=== PATIENT | male | born 1980 | race Caucasian/White ===

== ENCOUNTER 2017-01-12 12:49 | Emergency (ER) | payer MEDICAID ==
[2017-01-12] MEDS ORDERED: TETANUS/DIPHTHERIA/PERTUSSIS 0.5 ML SYRINGE IM ONE ×2 (13:15→13:16)
[2017-01-12] MEDS ORDERED: LIDOCAINE 2% 10 ML MDV ONE (13:52)
== END 2017-01-12 15:32 | disposition home or self-care (01) ==
DX: S81.012A Laceration without foreign body, left knee, initial encounter (principal); W29.8XXA Contact with other powered hand tools and household machinery, initial encounter; Y92.89 Other specified places as the place of occurrence of the external cause; Y99.0 Civilian activity done for income or pay; F17.200 Nicotine dependence, unspecified, uncomplicated; Z23 Encounter for immunization

== ENCOUNTER 2017-01-14 10:05 | Emergency (ER) | payer MEDICAID ==
[2017-01-14 10:13] VITALS: BP 148/66
[2017-01-14] MEDS ORDERED: SULFAMETH/TRIMETH DS 800/160 MG TABLET PO STA (12:41)
--- NOTE | 2017-01-14 12:44 | ED Physician Documentation ---
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 Put on Keflex, however didn't fill it until yesterday. Since yesterday has had increasing redness and pain at the wound without fevers or chills.) Review of Systems Constitutional: denies: Fever, Chills, Myalgias, Fatigue Respiratory: denies: Dyspnea, Cough GI: denies: Abdominal Pain, Nausea PD PAST MEDICAL HISTORY - Past Medical History Past Medical History: No - Past Surgical History Past Surgical History: Yes Derm: Skin grafts - Present Medications Home Medications: Ambulatory Orders Medication Instructions Recorded Confirmed Cephalexin [Keflex] 500 mg PO Q6H #28 capsule 01/12/17 01/14/17 HYDROcod/ACETAM 5/325 [[place] 5/325] 1 - 2 ea PO Q6H PRN #10 tablet 01/14/17 Sulfamethoxazole/Trimethoprim 1 each PO BID 7 Days 01/14/17 [Sulfamethoxazole-Tmp Ds Tablet] - Allergies Allergies/Adverse Reactions: Allergies Allergy/AdvReac Type Severity Reaction Status Date / Time No Known Drug Allergies Allergy Verified 01/12/17 12:57 - Social History Does the pt smoke?: Yes Smoking Status: Current every day smoker Does the pt drink ETOH?: Yes Does the pt have substance abuse?: No - Immunizations Immunizations are current?: Yes PD ED PE NORMAL - Vitals Vital signs reviewed: Yes - General General: Alert and oriented X 3, No acute distress - Extremities Extremities: Other (There is a curvilinear 3 cm laceration that is sutured to the medial superior right knee with good range of motion and no overt rest pain. It has mild surrounding cellulitis extending about 2-3 cm outside the wound margins, no purulent drainage and nothing to culture.) - Neuro Neuro: Alert and oriented X 3, Normal speech - Psych Psych: Normal mood, Normal affect Results - Vitals Vitals: Vital Signs - 24 hr 01/14/17 10:10 Temperature 36.7 C Heart Rate 102 H Respiratory 16 Rate Blood Pressure 148/66 H O2 Saturation 98 Oxygen O2 Source Room air PD MEDICAL DECISION MAKING - ED course ED course: Seems reasonable to add Bactrim for staphylococcal coverage at this juncture, doesn't seem like he needs the sutures out but close watchful waiting was advised. Departure - Departure Disposition: 01 Home, Self Care Clinical Impression: Wound infection Condition: Good Record reviewed to determine appropriate education?: Yes Instructions: ED Wound Care Prescriptions: HYDROcod/ACETAM 5/325 [[place] 5/325] 1 - 2 ea PO Q6H PRN #10 tablet PRN Reason: Pain Sulfamethoxazole/Trimethoprim [Sulfamethoxazole-Tmp Ds Tablet] 1 each PO BID 7 Days Comments: Return immediately if you develop fever, chills, or the redness worsens. Your blood pressure was elevated today on check in to the emergency department. This does not mean that you have hypertension, it is a common phenomenon to check into the emergency department and have elevated blood pressure. I recommend that you see your primary care physician within the week to have it rechecked when you're feeling better. Do not drink or drive while on narcotic pain medicine. Note that many narcotic pain relievers also contain tylenol/acetaminophen. Please ensure that your total dose of acetaminophen from all sources does not exceed 3 grams (3000mg) per day. You may constipated on this medication, take a stool softener such as "Colace" twice a day while you are on it. Also recommend a xisl-emz-ilorkmi laxative such as senna or MiraLAX any day that you do not have a bowel movement. If you received narcotic pain medication in the emergency department, do not drive or operate machinery for the next 24 hours. Discharge Date/Time: 01/14/17 12:51
[2017-01-14] MEDS ORDERED: SULFAMETH/TRIMETH DS 800/160 MG TABLET PO ONE (12:47)
== END 2017-01-14 12:51 | disposition home or self-care (01) ==
LOC: ED 10:05
DX: T81.4XXA Infection following a procedure, initial encounter (principal); L03.116 Cellulitis of left lower limb; Y84.8 Other medical procedures as the cause of abnormal reaction of the patient, or of later complication, without mention of misadventure at the time of the procedure; R03.0 Elevated blood-pressure reading, without diagnosis of hypertension; F17.200 Nicotine dependence, unspecified, uncomplicated
CPT/HCPCS: 99283; A9270

== ENCOUNTER 2017-01-20 08:55 | Emergency (ER) | payer MEDICAID ==
--- NOTE | 2017-01-20 09:04 | ED Physician Documentation ---
PD HPI WOUND RECHECK - Stated complaint Stated Complaint: NUMBNESS AROUND STITCHES - Chief complaint Chief Complaint: Wound - Histroy obtained from History obtained from: Patient - History of Present Illness Location: Left Lower Extremity Timing - onset: How many days ago (8 days ago had injury from power tool, seen in ED and had wound irrigation and sutures. It got red and swollen over next couple of days, and back for wound check. He had been Rx Keflex and this was changed to Bactrim at that time. He says the redness and swelling improved quite a bit, but still has just some element of redness and drainage and feeling of numbness in skin just below the wound. It has not gotten completely better.) Associated symptoms: Redness, Swelling, Drainage (cloudy/clear intermittent, fay/yellow at this time.). No: Fever Recently seen: Emergency Dept (see above) Review of Systems Constitutional: denies: Fever, Chills GI: denies: Nausea, Vomiting, Diarrhea Skin: reports: Laceration (s) PD PAST MEDICAL HISTORY - Past Surgical History Past Surgical History: Yes Derm: Skin grafts - Present Medications Home Medications: Ambulatory Orders Medication Instructions Recorded Confirmed HYDROcod/ACETAM 5/325 [[place] 5/325] 1 - 2 ea PO Q6H PRN #10 tablet 01/14/17 Sulfamethoxazole/Trimethoprim 1 each PO BID 7 Days 01/14/17 01/20/17 [Sulfamethoxazole-Tmp Ds Tablet] Hydrocodone/Acetaminophen [[place] 1 each PO Q6H PRN #12 tablet 01/20/17 5-325 Tablet] Mupirocin 1 applic TP TID #15 oint...g. 01/20/17 Sulfamethox/Trimeth 800/160 1 each PO BID #10 tablet 01/20/17 [Bactrim Ds 800/160] - Allergies Allergies/Adverse Reactions: Allergies Allergy/AdvReac Type Severity Reaction Status Date / Time No Known Drug Allergies Allergy Verified 01/12/17 12:57 - Social History Does the pt smoke?: Yes Smoking Status: Current every day smoker Does the pt drink ETOH?: Yes Does the pt have substance abuse?: No - Immunizations Immunizations are current?: Yes PD ED PE NORMAL - Vitals Vital signs reviewed: Yes - General General: Alert and oriented X 3, No acute distress, Well developed/nourished, Other (normal gait without limping. ) - Derm Derm: Warm and dry - Extremities Extremities: Other (lateral knee area with sutured laceration with mild redness around the edges, mostly inferior. There is scant slightly cloudy fay/yellow drop of discharge if the wound is pressured at the edges. Sutures are mostly intact (1 of them had pulled through an edge) without any dehiscence. ) Results - Vitals Vitals: Vital Signs - 24 hr 01/20/17 01/20/17 08:55 09:33 Temperature 36.5 C 36.5 C Heart Rate 93 88 Respiratory 16 17 Rate Blood Pressure 150/87 H 150/87 H O2 Saturation 99 100 Oxygen O2 Source Room air PD MEDICAL DECISION MAKING - ED course Complexity details: considered differential (still seems like a bit of infection , though much better than at 2nd visit. Since still some discharge/drainage, I obtained culture. Can have him resume the prior Keflex that he has, and continue the Bactrim for 5 more days. Culture can guid treatment in 2-3 days. He says the wound had drained pus and some apparent pieces of debris when it first drained, so there is enough opening for drainage to occur. I don't think it need further opening as yet. ), d/w patient Departure - Departure Disposition: 01 Home, Self Care Clinical Impression: Encounter for re-check of laceration wound Condition: Stable Record reviewed to determine appropriate education?: Yes Prescriptions: Sulfamethox/Trimeth 800/160 [Bactrim Ds 800/160] 1 each PO BID #10 tablet Mupirocin 1 applic TP TID #15 oint...g. Hydrocodone/Acetaminophen [[place] 5-325 Tablet] 1 each PO Q6H PRN #12 tablet PRN Reason: Pain Comments: Continue to clean the wound and apply ointment to it, but change to mupirocin 2- 3 times daily. Continue the SMZ/TMP antibiotic (the big white one) and resume the first antibiotic you were prescribed (so both of them) for the next 4-5 days. Recheck if still not improved over the next 2-3 days, and we will see if the culture obtained grows out a different than usual germ. I would leave the sutures in another week or so. If the wound still has some signs of infection and the antibiotics seem right by the culture, it might end up needing to just be opened and then allowed to heal slowly that way, which would give a bigger scarring (less desirable on a bending joint). Discharge Date/Time: 01/20/17 09:38
[2017-01-20 09:07] VITALS: BP 150/87
[2017-01-20] MEDS ORDERED: MUPIROCIN 2% OINT 1 GM TOP STA (09:23)
--- NOTE | 2017-01-20 10:49 | ED Physician Documentation ---
ED Addendum - Addendum Addendum: 01/20/17 10:48 unscheduled return visit for wond care - chart accessed for follow up and educational purposes
== END 2017-01-20 09:38 | disposition home or self-care (01) ==
LOC: ED 08:55
DX: Z51.89 Encounter for other specified aftercare (principal); S81.812D Laceration without foreign body, left lower leg, subsequent encounter; X58.XXXD Exposure to other specified factors, subsequent encounter; F17.200 Nicotine dependence, unspecified, uncomplicated
CPT/HCPCS: 87070; 87205; 99283

== ENCOUNTER 2017-05-19 12:35 | Emergency (ER) | payer MEDICAID ==
[2017-05-19 12:44] VITALS: BP 147/88
[2017-05-19] MEDS ORDERED: IBUPROFEN 800 MG TABLET PO STA (13:07)
[2017-05-19] MEDS ORDERED: IBUPROFEN 800 MG TABLET PO ONE (13:16)
--- NOTE | 2017-05-19 13:57 | XRAY Preliminary Report ---
Exam: XR Knee 3 View RT IMPRESSION: 1. No fractures. Moderate joint effusion. No loose bodies. No arthritic changes. [facility] SITE ID: [id number]
--- NOTE | 2017-05-19 14:19 | XRAY Report ---
EXAM: RIGHT KNEE RADIOGRAPHY EXAM DATE: 05/19/2017 01:46 PM. CLINICAL HISTORY: Right knee pain. COMPARISON: None. TECHNIQUE: 3 views. FINDINGS: Bones: Normal. No fractures or bone lesions. Joints: Moderate size joint effusion. No loose bodies by plain x-ray. Soft Tissues: Normal. No soft tissue swelling. IMPRESSION: 1. No fractures. Moderate joint effusion. No loose bodies. No arthritic changes. [facility] Referring Provider Line: [phone] SITE ID: [id number]
--- NOTE | 2017-05-19 14:26 | ED Physician Documentation ---
PD HPI LOWER EXT INJURY - Stated complaint Stated Complaint: RT KNEE PX - Chief complaint Chief Complaint: Ext Problem - History obtained from History obtained from: Patient - History of Present Illness PD HPI LOW EXT INJURY LOCATION: Right, Knee Type of injury: Twist Where injury occurred: Home Timing - onset: Yesterday Timing - details: Still present Worsened by: Other (walking) Associated symptoms: No: Swelling Similar symptoms before: No diagnosis - Additional information Additional information: The patient is a 36-year-old male who presents with pain in his right knee. He states he "dislocated it" yesterday while prying with a prybar, and twisting his knee. He reports that it occasionally dislocates and he has learned to manipulate it back into place. He presents now because of continued pain that is worse when ambulating, and is concerned about the possibility of bony abnormality. Review of Systems Constitutional: denies: Fever Nose: denies: Congestion Respiratory: denies: Cough Musculoskeletal: reports: Joint pain (right knee). denies: Back pain Neurologic: denies: Focal weakness, Numbness PD PAST MEDICAL HISTORY - Past Medical History Past Medical History: No - Past Surgical History Past Surgical History: Yes Derm: Skin grafts - Present Medications Home Medications: Ambulatory Orders Medication Instructions Recorded Confirmed HYDROcod/ACETAM 5/325 [[place] 5/325] 1 - 2 ea PO Q6H PRN #15 tablet 05/19/17 - Allergies Allergies/Adverse Reactions: Allergies Allergy/AdvReac Type Severity Reaction Status Date / Time No Known Drug Allergies Allergy Verified 05/19/17 13:08 - Social History Does the pt smoke?: Yes Smoking Status: Current every day smoker Does the pt drink ETOH?: Yes Does the pt have substance abuse?: No - Immunizations Immunizations are current?: Yes PD ED PE NORMAL - Vitals Vital signs reviewed: Yes (Mild hypertension initially.) - General General: Alert and oriented X 3, Well developed/nourished - HEENT HEENT: Atraumatic - Respiratory Respiratory: No respiratory distress - Back Back: No spinal TTP - Derm Derm: No rash - Extremities Extremities: No deformity, No edema, No calf tenderness / cord, Other (There is tenderness to palpation over the lateral joint line of the right knee and in the popliteal fossa. There is no prepatellar apprehension, no appreciable joint effusion, and no ligamentous instability detected. He can fully extend the knee and can flex it to 90, although flexion exacerbates his discomfort. There is no calf tenderness. Distal neurovascular is intact.) - Neuro Neuro: Alert and oriented X 3, No motor deficit, No sensory deficit Results - Vitals Vitals: Oxygen O2 Source Room air - Rads (name of study) right knee Radiology: Prelim report reviewed, EMP read contemporaneously, See rad report ( No fractures. Moderate joint effusion. No loose bodies. No arthritic changes. ) PD MEDICAL DECISION MAKING - ED course Complexity details: reviewed results, re-evaluated patient, considered differential, d/w patient ED course: The patient's presentation is most consistent with internal derangement of the right knee. There is no evidence of bony abnormality on x-ray examination. Treatment in the emergency department included administration of ibuprofen 800 mg orally, and application of a knee immobilizer. I discussed with him the results of the imaging study, symptomatic treatment and outpatient follow-up, as well as potentially worrisome signs or symptoms that should prompt reevaluation in the emergency department. Departure - Departure Disposition: 01 Home, Self Care Clinical Impression: Knee internal derangement Qualifiers: Laterality: right Qualified Code(s): M23.91 - Unspecified internal derangement of right knee Condition: Stable Instructions: ED Meniscal Injury Knee Poss, ED Effusion Knee Follow-Up: [facility] [Provider Group] Prescriptions: HYDROcod/ACETAM 5/325 [[place] 5/325] 1 - 2 ea PO Q6H PRN #15 tablet PRN Reason: Pain Comments: Apply ice pack to your knee intermittently for the next 3 days. Use the knee immobilizer for comfort. You can use ibuprofen, up to 800 mg 3 times daily for its anti-inflammatory effect. You can use Vicodin as prescribed if needed for pain. Follow-up with your primary physician or with orthopedics within 2 weeks. Call to schedule an appointment. Return to the emergency department if you develop increasing pain, increasing swelling of your knee, or otherwise worsening symptoms. Discharge Date/Time: 05/19/17 15:03
== END 2017-05-19 15:03 | disposition home or self-care (01) ==
LOC: ED 12:35
DX: M23.91 Unspecified internal derangement of right knee (principal); X50.0XXA Overexertion from strenuous movement or load, initial encounter; Y93.01 Activity, walking, marching and hiking; Y92.019 Unspecified place in single-family (private) house as the place of occurrence of the external cause; F17.200 Nicotine dependence, unspecified, uncomplicated
CPT/HCPCS: 73562; 99283; A9270

== ENCOUNTER 2018-02-19 11:21 | Emergency (ER) | payer MEDICAID ==
--- NOTE | 2018-02-19 12:23 | ED Physician Documentation ---
PD HPI TRUNK INJURY - Stated complaint Stated Complaint: R SIDE RIB PX - Chief complaint Chief Complaint: General - History obtained from History obtained from: Patient - History of Present Illness Location: Right chest Type of injury: Fall (from ladder that slid) Timing - onset: How many days ago (4) Timing - duration: Days (4) Timing - details: Abrupt onset, Still present Quality: Pain, Sharp. No: Spasm Improved by: Rest Worsened by: Moving, Palpating Associated symtptoms: No: Weakness, Numbness Where injury occured: Home Recently seen: Not recently seen Review of Systems Constitutional: denies: Fever, Chills Nose: denies: Rhinorrhea / runny nose, Congestion Throat: denies: Sore throat Cardiac: denies: Palpitations Respiratory: denies: Dyspnea, Cough GI: denies: Abdominal Pain, Nausea, Vomiting Skin: denies: Rash, Abrasion (s), Laceration (s) Neurologic: denies: Focal weakness, Numbness PD PAST MEDICAL HISTORY - Past Medical History Past Medical History: No - Past Surgical History Past Surgical History: Yes Derm: Skin grafts - Present Medications Home Medications: Ambulatory Orders Medication Instructions Recorded Confirmed HYDROcod/ACETAM 5/325 [[place] 5/325] 1 - 2 ea PO Q6H PRN #15 tablet 05/19/17 HYDROcod/ACETAM 5/325 [[place] 5/325] 1 tab PO Q6H PRN #15 tablet 02/19/18 Naproxen 375 mg PO BID #20 tablet 02/19/18 - Allergies Allergies/Adverse Reactions: Allergies Allergy/AdvReac Type Severity Reaction Status Date / Time No Known Drug Allergies Allergy Verified 05/19/17 13:08 - Social History Does the pt smoke?: Yes Smoking Status: Current every day smoker Does the pt drink ETOH?: Yes Does the pt have substance abuse?: No - Immunizations Immunizations are current?: Yes PD ED PE NORMAL - Vitals Vital signs reviewed: Yes - General General: Alert and oriented X 3, No acute distress, Well developed/nourished - Neck Neck: No bony TTP - Cardiac Cardiac: RRR, No murmur - Respiratory Respiratory: Clear bilaterally, Other (some tenderness right anterolateral ribs without crepitance at level of ribs 8-10. No bruising. Abd not tender. ) - Abdomen Abdomen: Soft, Non tender - Back Back: No CVA TTP - Derm Derm: Normal color, Warm and dry Results - Vitals Vitals: Oxygen O2 Source Room air - Rads (name of study) chest with ribs right Radiology: Prelim report reviewed (no fractures nor lung injury) PD MEDICAL DECISION MAKING - ED course Complexity details: reviewed results, considered differential (no obvious fractures), d/w patient - Sepsis Event Vital Signs: Oxygen O2 Source Room air Departure - Departure Disposition: 01 Home, Self Care Clinical Impression: Chest wall contusion Qualifiers: Encounter type: initial encounter Laterality: right Qualified Code(s): S20.211A - Contusion of right front wall of thorax, initial encounter Fall from ladder Qualifiers: Encounter type: initial encounter Qualified Code(s): W11.XXXA - Fall on and from ladder, initial encounter Condition: Stable Record reviewed to determine appropriate education?: Yes Instructions: ED Contusion Chest Wall Prescriptions: HYDROcod/ACETAM 5/325 [[place] 5/325] 1 tab PO Q6H PRN #15 tablet PRN Reason: Pain Naproxen 375 mg PO BID #20 tablet Comments: Neither myself nor the radiologist see any obvious fractures. We know the sensitivity of plain x-ray is only about 95% so there could be a mild hairline crack. Most the time though it is not broken when it does not look broken but can still be bruised and take a week or so to get better. Use some naproxen or ibuprofen 2-3 times a day. Add hydrocodone if needed for pain. Activity as able. Recheck if not better over 1-2 weeks. Discharge Date/Time: 02/19/18 13:25
--- NOTE | 2018-02-19 12:45 | XRAY Preliminary Report ---
Exam: XR RIBS W/PA CHEST RT IMPRESSION: 1. No definite rib fracture or definite acute abnormality of the chest. 2. Mild density along the posterior lateral aspect of the left sixth rib is of questionable significa nce but clinical correlation is recommended, as discussed above. [facility] SITE ID: [id number]
--- NOTE | 2018-02-19 12:45 | XRAY Report ---
EXAM: RIGHT RIB RADIOGRAPHY EXAM DATE: 02/19/2018 12:34 PM. CLINICAL HISTORY: Rib pain. Status post fall onto right side. Primary pain to right anterolateral x4 days. COMPARISON: None. TECHNIQUE: 1 view of the chest and 2 views of the ribs. FINDINGS: Bones: No displaced or definite rib fractures or other bone lesions. Lungs: No focal opacities. No pneumothorax. No pleural effusions. Subtle density on the PA view of th e chest along the medial margin of the posterior lateral left sixth rib could represent some mild ple ural-based atelectasis or plaque or other chronic and incidental finding. No definite abnormality is confirmed in that area on the other projections and the adjacent rib appears unremarkable. If there w ere to be focal symptoms at that site, edema or reactive change or other focal abnormality would not be excluded and CT imaging could be performed for further evaluation, assuming there are no prior exa ms to confirm long-term stability. Mediastinum: Heart and mediastinal contours are unremarkable. Other: None. IMPRESSION: 1. No definite rib fracture or definite acute abnormality of the chest. 2. Mild density along the posterior lateral aspect of the left sixth rib is of questionable significa nce but clinical correlation is recommended, as discussed above. [facility] Referring Provider Line: [phone] SITE ID: [id number]
[2018-02-19 13:26] VITALS: BP 118/83
== END 2018-02-19 13:25 | disposition home or self-care (01) ==
LOC: ED 11:21
DX: S20.211A Contusion of right front wall of thorax, initial encounter (principal); W11.XXXA Fall on and from ladder, initial encounter; F17.200 Nicotine dependence, unspecified, uncomplicated
CPT/HCPCS: 99283

== ENCOUNTER 2019-01-05 03:25 | Outpatient (CLI) | payer MEDICAID | END 2019-01-05 03:26 | disposition critical access hospital (66) | LOC: EMS 03:25 | PROVIDERS: ATTEND Surgery | DX: R41.82 Altered mental status, unspecified (principal); T69.9XXA Effect of reduced temperature, unspecified, initial encounter | CPT/HCPCS: A0425; A0429; A0999 ==

== ENCOUNTER 2019-01-05 04:00 | Emergency (ER) | payer MEDICAID ==
[2019-01-05] MEDS ORDERED: SODIUM CHLORIDE 0.9% 1,000 ML IV ONE (04:06)
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
[2019-01-05] MEDS ORDERED: BACITRACIN OINT TOP ONE (04:58)
[2019-01-05] MEDS ORDERED: IBUPROFEN 800 MG TABLET PO STA (05:01)
[2019-01-05 05:48] VITALS: BP 112/60
== END 2019-01-05 05:47 | disposition home or self-care (01) ==
LOC: EDUNIT# → ED 04:00
DX: T68.XXXA Hypothermia, initial encounter (principal); X31.XXXA Exposure to excessive natural cold, initial encounter; S50.812A Abrasion of left forearm, initial encounter; S50.811A Abrasion of right forearm, initial encounter; F17.200 Nicotine dependence, unspecified, uncomplicated
CPT/HCPCS: 36415; 93005; 96360; 99283; 99285; A9270

== ENCOUNTER 2020-02-02 13:13 | Emergency (ER) | payer SELFPAY ==
[2020-02-02 13:30] VITALS: BP 125/89
--- NOTE | 2020-02-02 13:42 | ED Physician Documentation ---
PD HPI URI - Stated complaint Stated Complaint: SORE THROAT - Chief complaint Chief Complaint: Heent - History obtained from History obtained from: Patient - History of Present Illness Timing - onset: How many weeks ago (2) Timing duration: Weeks (2) Timing details: Gradual onset, Still present, Waxing and waning Associated symptoms: Chills, Sore throat, Swollen nodes. No: Fever, Nasal congestion, Dry cough, Productive cough Contributing factors: No: Sick contact, Travel Similar symptoms before: Has not had sx before Review of Systems Constitutional: reports: Chills, Myalgias. denies: Fever Nose: denies: Rhinorrhea / runny nose, Congestion Throat: reports: Sore throat Respiratory: denies: Cough GI: denies: Abdominal Pain, Nausea, Vomiting, Diarrhea : reports: Other (no sexually active) Skin: denies: Rash PD PAST MEDICAL HISTORY - Past Medical History Cardiovascular: None Respiratory: None Neuro: None Endocrine/Autoimmune: None - Past Surgical History Past Surgical History: Yes Derm: Skin grafts - Present Medications Home Medications: Ambulatory Orders Medication Instructions Recorded Confirmed Cephalexin [Keflex] 500 mg PO Q6H #28 capsule 02/02/20 dexAMETHasone [Decadron] 4 mg PO DAILY #5 tablet 02/02/20 - Allergies Allergies/Adverse Reactions: Allergies Allergy/AdvReac Type Severity Reaction Status Date / Time No Known Drug Allergies Allergy Verified 02/02/20 13:27 - Living Situation Living Situation: reports: Alone Living Arrangement: reports: At home - Social History Does the pt smoke?: Yes Smoking Status: Current every day smoker Does the pt drink ETOH?: Yes Does the pt have substance abuse?: No - Family History Family history: reports: Non contributory - Immunizations Immunizations are current?: Yes - POLST Patient has POLST: No PD ED PE NORMAL - Vitals Vital signs reviewed: Yes - General General: Alert and oriented X 3, Well developed/nourished - HEENT HEENT: Ears normal. No: Pharynx benign (redness without focal swelling. No noted exudate. ) - Neck Neck: Supple, no meningeal sign, Other (anterior adenopathy more to the right. ) - Cardiac Cardiac: RRR, No murmur - Respiratory Respiratory: Clear bilaterally - Derm Derm: Normal color, Warm and dry, No rash Results - Vitals Vitals: Oxygen O2 Source Room air - Labs Labs: Laboratory Tests 02/02/20 13:30 Group A Strep Rapid POSITIVE H PD MEDICAL DECISION MAKING - ED course Complexity details: reviewed results (positive strep test), considered differential, d/w patient Departure - Departure Disposition: 01 Home, Self Care Clinical Impression: Acute streptococcal pharyngitis Condition: Stable Record reviewed to determine appropriate education?: Yes Instructions: ED Strep Pharyngitis Conf Prescriptions: Cephalexin [Keflex] 500 mg PO Q6H #28 capsule dexAMETHasone [Decadron] 4 mg PO DAILY #5 tablet Comments: Your rapid strep test is positive so we do have the answer. Use cephalexin 4 times a day for a week as directed for the infection. Add Decadron anti- inflammatory to help with swelling. Continue lots of fluids and use Tylenol or ibuprofen for pains. I would anticipate improvement over the next several days and resolution within 3 to 5 days. Recheck if it does not follow that course. Discharge Date/Time: 02/02/20 14:32
[2020-02-02] MEDS ORDERED: CHERRY SYRUP 10 ML UDC PO ONE (14:01)
[2020-02-02] MEDS ORDERED: DEXAMETHASONE 10 MG/ML VIAL PO STA (14:01)
[2020-02-02] MEDS ORDERED: cephALEXin 250 MG CAPSULE PO STA (14:01)
[2020-02-02 14:02] LABS: RAPID STREP SCREEN POSITIVE (Negative)
== END 2020-02-02 14:32 | disposition home or self-care (01) ==
LOC: ED 13:13
DX: J02.0 Streptococcal pharyngitis (principal); F17.200 Nicotine dependence, unspecified, uncomplicated
CPT/HCPCS: 87430; 99283; 99284; A9270

== ENCOUNTER 2020-03-06 16:36 | Emergency (ER) | payer SELFPAY ==
[2020-03-06] MEDS ORDERED: PENICILLIN G BENZATHINE 600,000 UNIT/ML SYRINGE IM STA (16:57)
--- NOTE | 2020-03-06 17:00 | ED Physician Documentation ---
PD HPI HEENT - Stated complaint Stated Complaint: STREP FOLLOW UP - Chief complaint Chief Complaint: Heent - History obtained from History obtained from: Patient (39-year-old gentleman has had problems with recurrent strep throat this last month. 2+ cultures. Finished penicillin and about 2 days later developed a severe sore throat again. No fevers. No cough.) Review of Systems Constitutional: denies: Fever, Chills Nose: denies: Rhinorrhea / runny nose, Congestion Throat: reports: Sore throat Cardiac: denies: Chest pain / pressure, Palpitations PD PAST MEDICAL HISTORY - Past Medical History Cardiovascular: None Respiratory: None Neuro: None Endocrine/Autoimmune: None - Past Surgical History Past Surgical History: Yes Derm: Skin grafts - Present Medications Home Medications: Ambulatory Orders Medication Instructions Recorded Confirmed Cephalexin [Keflex] 500 mg PO Q6H #28 capsule 02/02/20 dexAMETHasone [Decadron] 4 mg PO DAILY #5 tablet 02/02/20 Ibuprofen [Motrin] 800 mg PO Q8H PRN #30 tablet 02/15/20 Phenol [Chloraseptic] 1 sprays MM Q4HR PRN #1 bottle 03/06/20 - Allergies Allergies/Adverse Reactions: Allergies Allergy/AdvReac Type Severity Reaction Status Date / Time No Known Drug Allergies Allergy Verified 02/15/20 13:21 - Social History Does the pt smoke?: Yes Smoking Status: Current every day smoker Does the pt drink ETOH?: Yes Does the pt have substance abuse?: No - Immunizations Immunizations are current?: Yes - POLST Patient has POLST: No PD ED PE NORMAL - Vitals Vital signs reviewed: Yes - General General: Alert and oriented X 3, No acute distress - Neck Neck: Supple, no meningeal sign, No bony TTP, Other (Quite red tonsillar pillars with mild exudates, not much tonsillar swelling though.) - Neuro Neuro: Alert and oriented X 3, Normal speech - Psych Psych: Normal mood, Normal affect Results - Vitals Vitals: Vital Signs - 24 hr 03/06/20 16:43 Temperature 37.0 C Heart Rate 114 H Respiratory 18 Rate Blood Pressure 158/95 H O2 Saturation 96 Oxygen O2 Source Room air PD MEDICAL DECISION MAKING - ED course ED course: 39-year-old gentleman with recent positive throat cultures, now symptomatic again, will treat with IM penicillin to take any compliance issues out of the picture and recommended ENT follow-up. Departure - Departure Disposition: 01 Home, Self Care Clinical Impression: Acute streptococcal pharyngitis Condition: Good Record reviewed to determine appropriate education?: Yes Instructions: ED Strep Pharyngitis Conf Prescriptions: Phenol [Chloraseptic] 1 sprays MM Q4HR PRN #1 bottle PRN Reason: throat pain Comments: Reasonable to follow-up with an learning center instructor given the recurrent problems you are having, the closest to you is in [place], the number is [phone]
[2020-03-06 17:32] LABS: RAPID STREP SCREEN Negative (Negative)
[2020-03-06 17:57] VITALS: BP 157/76
== END 2020-03-06 17:57 | disposition home or self-care (01) ==
LOC: ED 16:36
DX: J02.0 Streptococcal pharyngitis (principal); F17.200 Nicotine dependence, unspecified, uncomplicated
CPT/HCPCS: 87070; 87430; 96372; 99283; 99284

== ENCOUNTER 2021-06-22 14:10 | Outpatient (CLI) | payer SELFPAY | END 2021-06-22 23:59 | disposition home or self-care (01) | LOC: COV 14:10 | PROVIDERS: ATTEND Family Medicine | DX: M79.10 Myalgia, unspecified site (principal); R07.0 Pain in throat; R09.81 Nasal congestion; J34.89 Other specified disorders of nose and nasal sinuses; Z20.822 Contact with and (suspected) exposure to COVID-19 ==

== ENCOUNTER 2022-08-03 11:35 | Emergency (ER) | payer OTHER ==
[2022-08-03 11:50] VITALS: BP 151/102
--- NOTE | 2022-08-03 13:16 | XRAY Report ---
PROCEDURE: Finger(s) LT INDICATIONS: Trauma TECHNIQUE: AP hand, 2 views of the middle finger(s) acquired. COMPARISON: None FINDINGS: Bones: Comminuted fracture of the base of the distal phalanx of the third finger involving the articu lar surface with displacement. No suspicious bony lesions. Soft tissues: No suspicious soft tissue calcifications. IMPRESSION: Comminuted, displaced fracture of the base of the distal phalanx of the third finger extending to the DIP joint. Reviewed by: Jem Velazquez MD on 08/03/2022 1:15 PM PST Approved by: Jem Velazquez MD on 08/03/2022 1:15 PM PST Station ID: [id number]
--- NOTE | 2022-08-03 14:00 | ED Physician Documentation ---
PD HPI UPPER EXT INJURY - Stated complaint Stated Complaint: LT HAND FINGER INJ - Chief complaint Chief Complaint: Laceration - History obtained from History obtained from: Patient - Additonal information Additional information: This is a right-handed gentleman who was at work today and fell off a ladder landing on his left middle finger and injuring it. He also has an abrasion on the right elbow. No head or neck injury. No other injuries. Review of Systems Constitutional: reports: Reviewed and negative Eyes: reports: Reviewed and negative Ears: reports: Reviewed and negative Cardiac: reports: Reviewed and negative PD PAST MEDICAL HISTORY - Past Medical History Past Medical History: Yes Cardiovascular: None Respiratory: None Neuro: None Endocrine/Autoimmune: None HEENT: None - Past Surgical History Past Surgical History: Yes Derm: Skin grafts - Present Medications Home Medications: Ambulatory Orders Medication Instructions Recorded Confirmed HYDROcod/ACETAM 5/325 [[place] 5/325] 1 - 2 tab PO Q6H PRN #15 tablet 08/03/22 - Allergies Allergies/Adverse Reactions: Allergies Allergy/AdvReac Type Severity Reaction Status Date / Time No Known Drug Allergies Allergy Verified 08/03/22 11:50 - Social History Does the pt smoke?: Yes Smoking Status: Current every day smoker Does the pt drink ETOH?: Yes Does the pt have substance abuse?: No - Immunizations Immunizations are current?: Yes - POLST Patient has POLST: No PD ED PE NORMAL - Vitals Vital signs reviewed: Yes - General General: Alert and oriented X 3, No acute distress - Extremities Extremities: Other (There is an abrasion over the right olecranon without tenderness. Full range of motion there. He has sequela of severe kessler on the right side of the body remotely. There is tenderness and deformity to the tip of the left third finger without distal neurovascular compromise.) - Neuro Neuro: Alert and oriented X 3, Normal speech Results - Vitals Vitals: Vital Signs - 24 hr 08/03/22 11:44 Temperature 36.6 C Heart Rate 112 H Respiratory 16 Rate Blood Pressure 151/102 H O2 Saturation 98 Oxygen O2 Source Room air - Rads (name of study) L middle finger Radiology: EMP read contemporaneously (Three-view x-ray of the left middle finger demonstrates a comminuted displaced fracture of the base of the distal phalanx extending to the DIP joint.) Procedures - Splint (location) Metal foam finger splint to the left middle finger Splint applied by: Physician Type of splint: Metal foam finger splint Other: Patient tolerated well, No complications, Neurovascular intact - Reduction Body part reduced: Left (After digital block the left middle fingertip was realigned to visual satisfaction prior to splint placement.) - Regional nerve block Nerve block site: Digital - note digit(s) Right / left: Left (middle) Nerve block anesthesia: Lidocaine 1% Nerve block aftercare: Other (A digital block was done with 1% lidocaine without epinephrine using a dorsal approach with excellent anesthesia,) Departure - Departure Disposition: Home, Self Care Clinical Impression: Fracture of phalanx of left middle finger Qualifiers: Encounter type: initial encounter Fracture type: closed Phalanx: distal Fracture alignment: displaced Qualified Code(s): S62.633A - Displaced fracture of distal phalanx of left middle finger, initial encounter for closed fracture Condition: Good Record reviewed to determine appropriate education?: Yes Instructions: ED Fx Finger Closed Prescriptions: HYDROcod/ACETAM 5/325 [[place] 5/325] 1 - 2 tab PO Q6H PRN #15 tablet PRN Reason: Pain Comments: I sent your prescription electronically to the [facility] pharmacy here at the corner of [address] [address] and [facility] in [place]. You should follow-up with a hand surgeon for evaluation of this finger fracture as it may need more definitive care than simple reduction and splinting. The closest is in [place],: Vincenzo Tucker MD [phone], Call his office today for an appointment. Appointment should be in a week to a week and a half at most. I am prescribing a short course of narcotic pain medication for you. These are potentially dangerous and addictive medications that should be used carefully. These medications may constipate you. Take an jklo-lhi-bvfylob stool softener (docusate) twice daily with plenty of water while taking these medications. If you go 24 hours without a bowel movement, take wgwb-[id number] miralax, per package instructions. Do not drink or drive while taking these medications. If you received narcotic or sedating medications while in the emergency department, do not drive for 24 hours. Store this medication in a safe, secure place and out of reach of children. It is a violation of federal law to give or sell this medication to another person or to use in a manner other than prescribed. The ED will not refill narcotic prescriptions, including prescriptions lost or stolen. To dispose of unwanted medications: 1. [facility] at [address] in [place] has a medication drop box. They accept prescription medications (in pill form) Monday through Monday 9:00 a.m. to 5:00 p.m. 2. The [facility] accepts prescription medications (in pill form only) for disposal year round. Call for more information. 3. Contact the [facility] for the next [facility] sponsored prescription drug collection event. , [phone], or [phone]; Note that many narcotic pain relievers also contain Tylenol/acetaminophen. Please ensure that your total dose of acetaminophen from all sources does not exceed 3 g (3000 mg) per day. Forms: Activity restrictions
== END 2022-08-03 14:18 | disposition home or self-care (01) ==
LOC: ED 11:35
DX: S62.633A Displaced fracture of distal phalanx of left middle finger, initial encounter for closed fracture (principal); W11.XXXA Fall on and from ladder, initial encounter; Y99.0 Civilian activity done for income or pay; F17.200 Nicotine dependence, unspecified, uncomplicated
CPT/HCPCS: 26755; 99283

== ENCOUNTER 2022-09-16 09:28 | Emergency (ER) | payer OTHER ==
[2022-09-16 09:50] VITALS: BP 150/88
--- NOTE | 2022-09-16 10:27 | ED Physician Documentation ---
PD HPI UPPER EXT INJURY - Stated complaint Stated Complaint: Surgical infection/Finger - Chief complaint Chief Complaint: Ext Problem - History obtained from History obtained from: Patient - History of Present Illness Location: Left, Finger (middle finger pain and increased redness and swelling without drainage. He had fracture of finger few weeks ago and seen by ortho with surgical pinning 2 weeks ago. Was having mild redness of the area. Seen in Ortho office 2 days ago with some redness in area. Had one pin removed/scheduled. more red) Type of injury: Other (fracture closed, with orthopedic pinning surgically 2 weeks ago. having increased redness over several days. he says it was only mild red 2 days ago when seen by Ortho. Has had increased redness and swelling and pain the past 2 days.) Timing - onset: How many weeks ago Worsened by: Moving, Palpating Associated symptoms: Swelling, Discolored (redness without purulent drainage.). No: Weakness, Numbness Contributing factors: Prior ortho surgery Recently seen: Clinic (2 days ago in followup of surgical pinning 2 weeks ago.) Review of Systems Constitutional: denies: Fever, Chills Neurologic: denies: Focal weakness, Numbness PD PAST MEDICAL HISTORY - Past Medical History Cardiovascular: None Respiratory: None Neuro: None Endocrine/Autoimmune: None HEENT: None - Past Surgical History Past Surgical History: Yes Derm: Skin grafts - Present Medications Home Medications: Ambulatory Orders Medication Instructions Recorded Confirmed HYDROcod/ACETAM 5/325 [[place] 5/325] 1 - 2 tab PO Q6H PRN #15 tablet 08/03/22 Doxycycline Hyclate 100 mg PO BID 7 Days #14 cap 09/16/22 HYDROcod/ACETAM 5/325 [[place] 5/325] 1 ea PO Q6H PRN #15 tablet 09/16/22 Mupirocin 2% Oint [Bactroban 2% 1 applic TOP TID #15 gm 09/16/22 Oint] - Allergies Allergies/Adverse Reactions: Allergies Allergy/AdvReac Type Severity Reaction Status Date / Time No Known Drug Allergies Allergy Verified 09/16/22 09:49 - Social History Does the pt smoke?: Yes Smoking Status: Current every day smoker Does the pt drink ETOH?: Yes Does the pt have substance abuse?: No - Immunizations Immunizations are current?: Yes - POLST Patient has POLST: No PD ED PE NORMAL - Vitals Vital signs reviewed: Yes - General General: Alert and oriented X 3, No acute distress, Well developed/nourished - Derm Derm: Normal color, Warm and dry - Extremities Extremities: Other (left middle finger with pin noted from tip. there is redness, swelling, but no fluctuance at distal phalanx mainly dorsal aspect and extending to middle phalanx area and some red streaking on radial side to level of mCP. No redness/swelling extending to hand per se. No purulence. ) - Neuro Neuro: Alert and oriented X 3, No motor deficit, No sensory deficit Results - Vitals Vitals: Vital Signs - 24 hr 09/16/22 09:47 Temperature 36.8 C Heart Rate 109 H Respiratory 16 Rate Blood Pressure 150/88 H O2 Saturation 95 Oxygen O2 Source Room air PD Medical Decision Making - ED course Complexity details: considered differential (has pin in place with recent surgical pinning. redness and swelling has increased, c/w infection. can give abx. If not improving, then would need to see ortho re: pin removal sooner. Right now seems soft tissue infection. ), d/w patient Departure - Departure Disposition: Home, Self Care Clinical Impression: Postoperative wound cellulitis Condition: Stable Record reviewed to determine appropriate education?: Yes Follow-Up: CORKY COLLIER MD [Primary Care Provider] - Prescriptions: Mupirocin 2% Oint [Bactroban 2% Oint] 1 applic TOP TID #15 gm Doxycycline Hyclate 100 mg PO BID 7 Days #14 cap HYDROcod/ACETAM 5/325 [[place] 5/325] 1 ea PO Q6H PRN #15 tablet PRN Reason: Pain Comments: This does look likely to be developing infection at the wound. Warm compresses to the area periodically to improve blood flow. Elevate and rest the finger often. Doxycycline antibiotic twice daily for the next week to help with infection. Anti-inflammatory of naproxen or ibuprofen 2-3 times daily for the next several days to week as well. Add Tylenol every 4-6 hours if needed for pain. To that add hydrocodone every 6 hours if needed for pain. I sent your prescriptions to the [facility] pharmacy here in [place]. If the redness and swelling decrease over the next several days and are looking much better, then just follow-up with the orthopedist as planned in a week and a half. If you have persistent redness and swelling or increasingly so despite the antibiotics over the next couple of days, then you would be best served by going to the [facility] ER where the orthopedist who did the surgery would be able to get involved as well with potential evaluation or pin removal etc. You can recheck here if worsening as well, but our ortho is on vacation and we would not be able to do more intervention if needed. I am prescribing a short course of narcotic pain medication for you. These are potentially dangerous and addictive medications that should be used carefully. These medications may constipate you. Take an envm-rja-guegiqr stool softener such as docusate twice daily with plenty of water while taking these medicati ons. If you go 24 hours without a bowel movement, take boqy-noe-ziexmxl MiraLAX, per package instructions. Do not drink or drive while taking these medications. If you received narcotic or sedating medications while in the emergency department do not drive for 24 hours. Store this medication in a safe, secure place and out of reach of children. It is a violation of federal law to give or sell this medication to another person or to use in a manner other than prescribed. The ED will not refill narcotic prescriptions, including prescriptions lost or stolen. You can dispose of unwanted medications at the [facility]'s office or at several pharmacies such as [facility]. Discharge Date/Time: 09/16/22 11:02
[2022-09-16] MEDS ORDERED: HYDROcod/ACETAM 5/325 MG TABLET PO STA (10:42)
[2022-09-16] MEDS ORDERED: DOXYCYCLINE 100 MG TABLET PO STA (10:42)
== END 2022-09-16 11:02 | disposition home or self-care (01) ==
LOC: ED 09:28
DX: L76.82 Other postprocedural complications of skin and subcutaneous tissue (principal); L03.012 Cellulitis of left finger; Y83.8 Other surgical procedures as the cause of abnormal reaction of the patient, or of later complication, without mention of misadventure at the time of the procedure; Y79.3 Surgical instruments, materials and orthopedic devices (including sutures) associated with adverse incidents; F17.200 Nicotine dependence, unspecified, uncomplicated
CPT/HCPCS: 99282; 99283; A9270